=== PATIENT | male | born 1995 | race Caucasian/White ===

== ENCOUNTER 2021-02-28 15:26 | Emergency (ER) | payer OTHER | END 2021-02-28 19:30 | disposition home or self-care (01) | LOC: FER 15:26 | DX: S20.212A Contusion of left front wall of thorax, initial encounter (principal); Z87.891 Personal history of nicotine dependence; V43.53XA Car driver injured in collision with pick-up truck in traffic accident, initial encounter; Y92.410 Unspecified street and highway as the place of occurrence of the external cause | CPT/HCPCS: 71101 ==